=== PATIENT | female | born 2000 | race African-American/Black ===

== ENCOUNTER 2023-08-14 13:21 | Emergency (ER) | payer SELFPAY ==
[2023-08-14 14:17] LABS: Absolute Lymphocytes (CBC) 1.8 K/uL (0.7-4.9); Hematocrit 39.8 % (36.0-45.0); Lymphocytes % 15.7 % (15.3-44.8); MCV 90.3 fL (80-100); MPV 6.6 fL (7.6-11.3); Platelets 416 thou/uL (152-406); RBC Red Blood Cell Count 4.41 M/uL (3.86-4.86)
[2023-08-14 14:26] LABS: Protime INR 1.17
[2023-08-14 14:43] LABS: ALT/SGPT 14 U/L (13-56); AST/SGOT 8 U/L (15-37); Albumin 3.7 g/dL (3.4-5.0); Alkaline Phosphatase 64 U/L (45-117); BUN Blood Urea Nitrogen 8 mg/dL (7-18); Bicarbonate 24 mEq/L (21-32); Bilirubin Direct 0.1 mg/dL (0-0.2); Bilirubin Indirect, Calculated 0.4 mg/dL (0.2-0.8); Bilirubin Total 0.5 mg/dL (0.2-1.0); Glomerular Filtration Rate 125 ml/min (=/>90); Glucose Level 89 mg/dL (74-106); Potassium 3.2 mEq/L (3.5-5.1); Protein, Total 8.4 g/dL (6.4-8.2); Sodium Level 140 mEq/L (136-145)
[2023-08-14 16:48] LABS: Specific Gravity 1.031 (1.005-1.030)
[2023-08-14 16:50] LABS: Specific Gravity > 1.030 (1.005-1.030); Urine Bacteria <20 /HPF (<20); Urine Bilirubin NEGATIVE (Negative); Urine Blood Trace (Negative); Urine Clarity Extremely Turbid (Clear); Urine Color Yellow (Yellow); Urine Glucose NEGATIVE (Negative); Urine Mucus 1+ /HPF (None Seen); Urine Protein 1+ (Negative); Urine Urobilinogen 1+ (Normal)
[2023-08-14 16:57] LABS: Barbiturates NEGATIVE (NEGATIVE); Benzodiazepines NEGATIVE (NEGATIVE); Cocaine NEGATIVE (NEGATIVE); METHAMPHETAM NEGATIVE (NEGATIVE); Methadone NEGATIVE (NEGATIVE); Opiates NEGATIVE (NEGATIVE); Phencyclidine NEGATIVE (NEGATIVE); THC Cannibis NEGATIVE (NEGATIVE)
--- NOTE | 2023-08-14 17:22 | ER ---
Nurse's Notes [facility] [place] Name: Rodrick Taylor Age: 23 yrs Sex: Female : 2000 Arrival Date: 08/14/2023 Time: 13:21 Bed 17 Private MD: Diagnosis: Psychosis;Hypokalemia Presentation: 08/14 13:26 Chief complaint: EMS states: "toned out for hearing voices and having hallucinations. mb9 Pt wants to hurt herself and stated she's "killed people." Pt doesn't know difference between dreams and reality.". Coronavirus screen: At this time, the client does not indicate any symptoms associated with coronavirus-19. Ebola Screen: No symptoms or risks identified at this time. Initial Sepsis Screen: Does the patient meet any 2 criteria? No. Patient's initial sepsis screen is negative. Does the patient have a suspected source of infection? No. Patient's initial sepsis screen is negative. Risk Assessment: Do you want to hurt yourself or someone else? Patient reports desire/thoughts of hurting themselves or someone else. Provider notified. Onset of symptoms was August 14, 2023. 13:26 Acuity: BRADY 2 mb9 13:26 Method Of Arrival: [facility] Triage Assessment: 13:25 General: Appears in no apparent distress. Behavior is flat. Pain: Denies pain. Neuro: mb9 Brooks Agitation-Sedation Scale (RASS): 0 - Alert and Calm Level of Consciousness is awake, confused, Oriented to person. Cardiovascular: Patient's skin is warm and dry. Respiratory: Airway is patent Respiratory effort is even, unlabored, Respiratory pattern is regular, symmetrical. GI: Abdomen is flat, non-distended. Derm: Skin is pink, warm \\T\\ dry. Musculoskeletal: Range of motion: intact in all extremities. 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 - Social history:: Smoking status: Patient denies any tobacco usage or history of. Screenin:12 [facility] ED Fall Risk Assessment (Adult) History of falling in the last 3 months, mb9 including since admission No falls in past 3 months (0 pts) Confusion or Disorientation No (0 pts) Intoxicated or Sedated No (0 pts) Impaired Gait No (0 pts) Mobility Assist Device Used No (0 pt) Altered Elimination No (0 pt) Score/Fall Risk Level 0 - 2 = Low Risk Oriented to surroundings, Maintained a safe environment, Educated pt \\T\\ family on fall prevention, incl call for assistance when getting out of bed. Abuse screen: Denies threats or abuse. Nutritional screening: No deficits noted. Tuberculosis screening: No symptoms or risk factors identified. Assessment: 13:25 Reassessment: SI precautions in place. Sitter at bedside. SEE C-SSRS form for further mb9 information. 14:25 Reassessment: at bedside. SI precautions in place. Pt currently sleeping. mb9 Sitter at bedside. 15:25 Reassessment: at bedside. SI precautions in place. Pt currently sleeping. mb9 Sitter at bedside. 16:25 Reassessment: SI precautions in place. Sitter at bedside. Pt laying in bed with eyes mb9 open. 17:25 Reassessment: at bedside. SI precautions in place. Pt currently sleeping. mb9 Sitter at bedside. Pt laying in bed with eyes open. 17:32 Reassessment: Suleiman, pt , phone number; [phone]. mb9 18:25 Reassessment: SI precautions in place. Pt currently sleeping. Sitter at bedside, pt mb9 currently sleeping. 19:25 Reassessment: at bedside. SI precautions in place. Pt currently sleeping. mb9 Sitter at bedside. 20:25 Reassessment: at bedside. SI precautions in place. Sitter at bedside. mb9 20:46 Reassessment: pt attempting to leave room and wander [address]. Pt redirected into own mb9 room. 21:25 Reassessment: at bedside. SI precautions in place. Sitter at bedside. Pt mb9 currently laying in bed with eyes open. 21:30 General: Appears comfortable, Behavior is calm, cooperative. Pain: Denies pain. Neuro: ha1 Level of Consciousness is awake, alert, Oriented to person, place, time, situation, Reports Suicidal ideations . Cardiovascular: Patient's skin is warm and dry. Respiratory: Airway is patent Respiratory effort is even, unlabored, Respiratory pattern is regular, symmetrical. GI: No signs and/or symptoms were reported involving the gastrointestinal system. Abdomen is flat, non-distended. : No signs and/or symptoms were reported regarding the genitourinary system. Derm: Skin is moist, Skin is normal. Musculoskeletal: Circulation, motion, and sensation intact. 22:30 Reassessment: eyes closed. General: Behavior is calm. Respiratory: Airway is patent ha1 Respiratory effort is even, unlabored, Respiratory pattern is regular, symmetrical. 22:50 Reassessment: [facility] sales support representative in the room. ha1 23:22 Reassessment: patient's elimination needs met. tm6 08/15 00:46 Reassessment: eyes closed. Respiratory: Airway is patent Respiratory effort is even, ha1 unlabored, Respiratory pattern is regular, symmetrical. 01:30 Reassessment: No changes from previously documented assessment. ha1 01:30 Respiratory: Airway is patent Respiratory effort is even, unlabored, Respiratory ha1 pattern is regular, symmetrical. 02:35 Reassessment: Patient appears in no apparent distress at this time. patient provided a ha1 snack. 03:49 Reassessment: Patient appears in no apparent distress at this time. patient changed ha1 into new gown and deodorant applied. 04:25 Reassessment: patient has eyes closed. Respiratory: Airway is patent Respiratory effort tm6 is even, unlabored, Respiratory pattern is regular, symmetrical. 05:00 Reassessment: eyes closed. Respiratory: Airway is patent Respiratory effort is even, ha1 unlabored, Respiratory pattern is regular, symmetrical. 05:18 Reassessment: patient has eyes closed. tm6 06:00 Reassessment: eyes closed. Respiratory: Airway is patent Respiratory effort is even, ha1 unlabored, Respiratory pattern is regular, symmetrical. 06:29 Reassessment: Patient appears in no apparent distress at this time. patient has eyes tm6 closed. 07:00 Reassessment: Patient appears in no apparent distress at this time. No changes from kc6 previously documented assessment. Patient and/or family updated on plan of care and expected duration. Pain level reassessed. Patient is alert, oriented x 3, equal unlabored respirations, skin warm/dry/pink. 08:00 Reassessment: Patient appears in no apparent distress at this time. No changes from kc6 previously documented assessment. Patient and/or family updated on plan of care and expected duration. Pain level reassessed. Patient is alert, oriented x 3, equal unlabored respirations, skin warm/dry/pink. 09:00 Reassessment: Patient appears in no apparent distress at this time. No changes from kc6 previously documented assessment. Patient and/or family updated on plan of care and expected duration. Pain level reassessed. Patient is alert, oriented x 3, equal unlabored respirations, skin warm/dry/pink. 10:00 Reassessment: Patient appears in no apparent distress at this time. No changes from kc6 previously documented assessment. Patient and/or family updated on plan of care and expected duration. Pain level reassessed. Patient is alert, oriented x 3, equal unlabored respirations, skin warm/dry/pink. 11:00 Reassessment: Patient appears in no apparent distress at this time. No changes from kc6 previously documented assessment. Patient and/or family updated on plan of care and expected duration. Pain level reassessed. Patient is alert, oriented x 3, equal unlabored respirations, skin warm/dry/pink. 12:00 Reassessment: Patient appears in no apparent distress at this time. No changes from kc6 previously documented assessment. Patient and/or family updated on plan of care and expected duration. Pain level reassessed. Patient is alert, oriented x 3, equal unlabored respirations, skin warm/dry/pink. 13:00 Reassessment: Patient appears in no apparent distress at this time. No changes from kc6 previously documented assessment. Patient and/or family updated on plan of care and expected duration. Pain level reassessed. Patient is alert, oriented x 3, equal unlabored respirations, skin warm/dry/pink. 14:00 Reassessment: Patient appears in no apparent distress at this time. No changes from kc6 previously documented assessment. Patient and/or family updated on plan of care and expected duration. Pain level reassessed. Patient is alert, oriented x 3, equal unlabored respirations, skin warm/dry/pink. 15:00 Reassessment: Patient appears in no apparent distress at this time. No changes from kc6 previously documented assessment. Patient and/or family updated on plan of care and expected duration. Pain level reassessed. Patient is alert, oriented x 3, equal unlabored respirations, skin warm/dry/pink. 16:00 Reassessment: Patient appears in no apparent distress at this time. No changes from kc6 previously documented assessment. Patient and/or family updated on plan of care and expected duration. Pain level reassessed. Patient is alert, oriented x 3, equal unlabored respirations, skin warm/dry/pink. 19:00 Reassessment: Report received from AM nurse. Pt noted in bed with S.O. at bedside. Pt nw1 denies needs/wants at this time. Pt's room assessed for anything of danger. Nothing noted. Pt in direct view of nurse's station. A\\T\\Ox3. 0 s/s of acute distress noted at this time. Will continue to monitor At this time, AM sitter monitoring 1:1 with patient. 21:00 Reassessment: Patient up to restroom. No 1:1 sitter at this time. No 1:1 permanent nw1 sitter at bedside since 1930, however patient in constant view of nurse's station. 0 s/s of acute distress noted at this time. S.O at bedside. Pt stated anxiety and notified MD of this. Patient then stated she did not want any medication at this time Notified patient that it is available when needed. Flat affect noted. Will continue to closely monitor. 23:00 Reassessment: Patient noted sitting upright in bed. Reassessed patient. Patient states nw1 anxiety due to movement in emergency department. Reassured patient that emergency department is busy but she is still safe and cared for. Pt appeared reassured and verbalized understanding of conversation. Patient also reminded that medication available. Patient refused medication at this time. S.O. remains at bedside. Patient noted A\\T\\Ox4 with 0 s/s of acute distress at this time. Pt denies need/want for anything at this time. Will continue to closely monitor. 08/16 01:00 Reassessment: Pt noted laying in bed with both eyes closed. 0 s/s of acute distress nw1 noted at this time. S.O. at bedside. Will continue to monitor. Pt remains near nursing station. 03:00 Reassessment: Pt talking to this nurse with a lot of confusion in conversation. Pt nw1 states she is traveling in [place] and is unable to tell what is real vs what is not real. Pt denies wanting medication at this time. Pt able to be reassured and reoriented. Pt denies pain at this time. S.O. at bedside sleeping. A\\T\\Ox2 at this time. Pt remains near nursing station. Will continue to monitor. 05:00 Reassessment: Patient taken upstairs via wheelchair to take a shower with this nurse. nw1 Pt tolerated shower. Oral care performed. Patient noted with flat affect. Will continue to monitor closely. 07:02 Reassessment: Pt noted with incoherent thoughts and speaking of a lot. nw1 Administered PO medication and patient tolerated. Pt noted watching television at this time. Pt continuing to come to nurse's station. Patient currently in bed watching television. Oncoming nurse made aware during COS. 07:03 Reassessment: Patient and/or family updated on plan of care and expected duration. Pain ll1 level reassessed. Report received from manager shift RN. 09:50 Reassessment: Report given Isacc at [facility]. ll1 11:39 Reassessment: No changes from previously documented assessment. Patient and/or family ll1 updated on plan of care and expected duration. Pain level reassessed. To [facility] via EMS. Psych: 08/14 21:30 [place] Suicide Severity Screening: In the past month, have you wished you were ha1 or wished you could go to sleep and not wake up? Patient responds "yes." "In the past month, have you actually had any thoughts of killing yourself?" Patient responds "yes." "In your lifetime, have you ever done anything, started to do anything, or prepared to do anything to end your life?" Patient responds "yes." Patient reports suicidal intent within 3 past months. Subjective: Patient's mood is sad. Objective: Patient is cooperative, Speech is normal, Affect is flat. Interventions: Removed personal items and placed in bag. Patient placed in hospital gown. Patient reassessed during use of restraints. Patient is physically safe. Patient's respirations are even and unlabored. Patient assessed for signs of distress. Patient remains reasonably comfortable at this time. Safety Checks: Personal items have been removed. Door is open. Visitors are present. Pt denies substance abuse. Commitment: Patient will be an involuntary commitment. Vital Signs: 13:26 BP 120 / 80; Pulse 95; Resp 18; Temp 98; Pulse Ox 100% ; Weight 68.04 kg; Height 5 ft. mb9 3 in. ; Pain 0/10; 19:00 BP 118 / 78; Pulse 85; Resp 16; Pulse Ox 99% ; mb9 08/15 01:41 BP 165 / 82; Pulse 93; Resp 17 S; Temp 98.6(O); Pulse Ox 97% on R/A; ha1 16:34 BP 145 / 80; Pulse 98; Resp 20; Temp 98.2; Pulse Ox 100% on R/A; em1 21:03 BP 121 / 80; Pulse 106; Resp 16; Temp 96.9(O); Pulse Ox 99% on R/A; nw1 08/16 02:02 BP 119 / 81; Pulse 90; Resp 16; Pulse Ox 99% on R/A; nw1 10:12 BP 128 / 82; Pulse 100; Resp 20; Temp 98.4; Pulse Ox 100% on R/A; em1 08/14 13:26 Body Mass Index 26.57 (68.04 kg, 160.02 cm) mb9 08/14 13:26 Pain Scale: Adult mb9 ED Course: 08/14 13:25 Patient arrived in ED. mb9 13:25 Arm band placed on. mb9 13:25 Patient has correct armband on for positive identification. Side rails up X2. mb9 13:30 Triage completed. mb9 13:31 Lani Crenshaw, DORITA is Primary Nurse. mb9 13:35 Suleiman Navarro DO is Attending Physician. ms3 14:10 EKG done, by ED staff, reviewed by Suleiman Navarro DO. mb9 14:26 Salicylate Sent. ds4 14:26 Ptt, Activated Sent. ds4 16:22 Urinalysis w/ reflexes Sent. mb9 16:22 Test, Urine Sent. mb9 17:02 faxed patient record to the following facilities in attempt to find [facility]/ [facility]/ and [facility]. 19:00 Attending Physician role handed off by Suleiman Navarro DO rt 19:00 Ty Garrison MD is Attending Physician. rt 20:29 No provider procedures requiring assistance completed. mb9 21:01 called [facility] and talked to Murtaza. sp 21:22 Noris with [facility] called and will be here in an hour to see pt. sp 21:42 Report given to Seven. mb9 23:11 faxed [facility] document from [place]. sp 08/15 03:49 Assisted to bathroom. gown changed, deodorant provided. ha1 04:18 reached out to [facility] regarding placement status, they are at full capacity but jr will be discharging patients this morning and will then have a bed available for pt. 07:00 Report received from DORITA Dickinson. kc6 07:06 Report given to Marie KEVIN. tm6 07:07 Attending Physician role handed off by Ty Garrison MD ms3 07:07 Suleiman Navarro DO is Attending Physician. ms3 09:53 spoke to Reji with [facility], "waiting on discharges, will get one of the [facility] beds as soon as it becomes available". 20:45 Attending Physician role handed off by Suleiman Navarro DO sp4 20:45 Joshua Albright MD is Attending Physician. sp4 23:38 No apparent distress. Appears restless. transfer approval from receiving facility. nw1 Safety Checks: Personal items have been removed. The door is open or patient has been placed in a hallway bed/chair. A family member and/or friend is present and encouraged to stay. significant other Sitter not present at this time due to or because staffing. 23:38 Provided Education on: POC. Noise minimized. Lights dimmed. Warm blanket given. Patient nw1 is placed in psych hold. 23:38 Patient did not have IV access during this emergency room visit. nw1 08/16 07:16 Attending Physician role handed off by Joshua Albright MD ms3 07:16 Suleiman Navarro DO is Attending Physician. ms3 09:32 spoke with Reed at [facility], no beds yet, he will try to open a overflow bed. bd 10:31 pt accepted in transfer to [facility] by dr Jason, admin approval given by Lisbet Rankin. Administered Medications: 08/14 17:31 Drug: Geodon IM 10 mg IM once Route: IM; Site: left deltoid; mb9 20:42 Follow up: Response: No adverse reaction mb9 17:32 Drug: Potassium Chloride PO 40 mEq PO once Route: PO; mb9 20:42 Follow up: Response: No adverse reaction mb9 08/15 13:24 Drug: Geodon IM 10 mg IM once Route: IM; Site: left deltoid; kc6 14:31 Follow up: Response: No adverse reaction; Anxiety decreased; RASS: Alert and Calm (0) kc6 15:18 Drug: LORazepam IM 1 mg IM once Route: IM; Site: right deltoid; kc6 16:38 Follow up: Response: No adverse reaction; Anxiety decreased; RASS: Alert and Calm (0) 6 08/16 06:05 Drug: LORazepam PO 2 mg PO once Route: PO; nw1 11:52 Follow up: Response: No adverse reaction; RASS: Alert and Calm (0) 1 06:05 Drug: Cephalexin PO 500 mg PO once Route: PO; nw1 11:52 Follow up: Response: No adverse reaction 1 Medication: 08/14 14:12 VIS not applicable for this client. mb9 Outcome: 17:22 ER care complete, transfer ordered by . ms3 08/16 11:40 Transferred by ground EMS to other acute care facility: [facility] . Transfer form ll1 completed. Condition: stable Instructed on the need for transfer, 11:53 Patient left the ED. 1 Signatures: Edna Stringer Shawna sp Martinez, Eric emLuke Yang ds4 Luana Segundo Lynsay RN RN ll1 Suleiman Navarro DO DO ms3 Lynn Cooper RN RN haMarie Odonnell RN RN kc6 Lani Crenshaw RN RN mb9 Ty Garrison MD MD rt Joshua Albright MD MD sp4 Neelima Villegas [facility] Chacorta Valdez RN RN tm6 Rebekah Dove RN RN nw1 Corrections: (The following items were deleted from the chart) 08/14 14:36 13:25 Reassessment: SI precautions in place. Sitter at bedside. mb9 mb9 15:41 14:25 Reassessment: at bedside. SI precautions in place. Pt currently sleeping. mb9 Sitter at bedside mb9 17:32 15:25 Reassessment: at bedside. SI precautions in place. Pt currently sleeping. mb9 Sitter at bedside mb9 20:38 20:25 Reassessment: at bedside. SI precautions in place. Pt currently sleeping. mb9 Sitter at bedside mb9 08/15 06:33 01:30 Reassessment: No changes from previously documented assessment. ha1 ha1 06:33 03:17 Reassessment: patient sleeping ha1 ha1 07:08 04:25 Reassessment: patient sleeping tm6 tm6 07:08 05:18 Reassessment: patient sleeping tm6 tm6 07:09 06:29 Reassessment: Patient appears in no apparent distress at this time. patient tm6 sleeping tm6 17:15 08/14 13:25 Allergies: No Known Allergies; mb9 kc6 08/16 02:02 02:00 Reassessment: Pt noted laying in bed with both eyes closed. 0 s/s of acute nw1 distress noted at this time. S.O. at bedside. Will continue to monitor. Pt remains near nursing station. nw1
--- NOTE | 2023-08-14 17:22 | EDPHYS ---
Physician Documentation [facility] Name: Rodrick Taylor Age: 23 yrs Sex: Female : 2000 Arrival Date: 08/14/2023 Time: 13:21 Bed 17 Private MD: ED Physician Suleiman Navraro HPI: 08/14 14:09 This 23 yrs old Female presents to ER via EMS with complaints of psychosis. ms3 14:09 23-year-old female with past medical history of depression, ADD presents to the [facility] emergency department via [facility] after she was found wandering down the street. Patient stated to EMS that she has been killing people and wants to herself and others. Patient stated to me she was wanting to hurt herself and other people. Patient is withdrawn during HPI.. 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 - Social history:: Smoking status: Patient denies any tobacco usage or history of. ROS: 14:09 Constitutional: Negative for fever, and chills. Cardiovascular: Negative for chest ms3 pain, and palpitations. Respiratory: Negative for shortness of breath, cough, wheezing, and pleuritic chest pain, Abdomen/GI: Negative for abdominal pain, nausea, vomiting, diarrhea, and constipation, MS/Extremity: Negative for injury and deformity, Skin: Negative for injury, rash, and discoloration, Neuro: Negative for headache, weakness, numbness, tingling. Exam: 14:09 Constitutional: This is a well developed, well nourished patient who is awake, alert, ms3 and in no acute distress. Head/Face: Normocephalic, atraumatic. Neck: Trachea midline, no cervical lymphadenopathy. Supple, full range of motion without nuchal rigidity, or vertebral point tenderness. No Meningismus. Cardiovascular: Regular rate and rhythm with a normal S1 and S2. No gallops, murmurs, or rubs. Normal PMI, no JVD. No pulse deficits. Respiratory: Lungs have equal breath sounds bilaterally, clear to auscultation and percussion. No rales, rhonchi or wheezes noted. No increased work of breathing, no retractions or nasal flaring. Abdomen/GI: Soft, non-tender, with normal bowel sounds. No distension or tympany. No guarding or rebound. No evidence of tenderness throughout. Skin: Warm, dry with normal turgor. Normal color with no rashes, no lesions, and no evidence of cellulitis. MS/ Extremity: Pulses equal, no cyanosis. Neurovascular intact. Full, normal range of motion. 14:09 Psych: Behavior/mood is withdrawn. Affect is flat, Patient having thoughts of suicide. Patient having thoughts of homicide. Judgement / Insight is impaired. Delusions/hallucinations are present and described as Patient appears to be pointing to objects not present in the room. 14:30 ECG was reviewed by the Attending Physician. ms3 Vital Signs: 13:26 BP 120 / 80; Pulse 95; Resp 18; Temp 98; Pulse Ox 100% ; Weight 68.04 kg; Height 5 ft. mb9 3 in. ; Pain 0/10; 19:00 BP 118 / 78; Pulse 85; Resp 16; Pulse Ox 99% ; mb9 12 01:41 BP 165 / 82; Pulse 93; Resp 17 S; Temp 98.6(O); Pulse Ox 97% on R/A; ha1 16:34 BP 145 / 80; Pulse 98; Resp 20; Temp 98.2; Pulse Ox 100% on R/A; em1 21:03 BP 121 / 80; Pulse 106; Resp 16; Temp 96.9(O); Pulse Ox 99% on R/A; nw1 12 02:02 BP 119 / 81; Pulse 90; Resp 16; Pulse Ox 99% on R/A; nw1 10:12 BP 128 / 82; Pulse 100; Resp 20; Temp 98.4; Pulse Ox 100% on R/A; em1 08/14 13:26 Body Mass Index 26.57 (68.04 kg, 160.02 cm) mb9 08/14 13:26 Pain Scale: Adult mb9 MDM: 08/14 14:08 Patient medically screened. ms3 14:09 Differential diagnosis: drug withdrawal. acute psychotic break, depression, psychosis ms3 secondary to non-compliance. 08/15 00:55 Data reviewed: vital signs, nurses notes, lab test result(s). Management of patient was rt discussed with the following: Behavioral Health Provider: Recommends inpatient psychiatric hospitalization. I considered the following discharge prescriptions or medication management in the emergency department Medications were administered in the Emergency Department. See MAR. 07:08 Transition of care: Care assumed from Ty Garrison MD. ms3 10:06 ED course: Patient re-evaluated this AM. Patient denies hallucinations at this time. ms3 Patient initially states she is not suicidal and then stated she lied and is suicidal because of the pain she has been in lately. Patient did not elaborate on her pain. Discussed with patient we were awaiting transfer to psychiatric facility. Patients at bedside and updated as well.. 15:09 ED course: Patient with visual hallucinations after 10 mg Geodon. Will give patient 1 ms3 mg Ativan IM.. 08/16 07:19 Transition of care: Care assumed from Joshua Albright MD. ms3 07:24 ED course: Re-evaluation: Patient is alert, in NAD, non-toxic appearing. Patient is ms3 without hallucinations at this time. Discussed with patient transfer remains pending. . 08/14 13:27 Order name: Acetaminophen; Complete Time: 17:18 sb4 08/14 13:27 Order name: Basic Metabolic Panel; Complete Time: 17:18 sb4 08/14 13:27 Order name: CBC with Diff; Complete Time: 14:34 sb4 08/14 13:27 Order name: ETOH Level; Complete Time: 17:18 sb4 08/14 13:27 Order name: Hepatic Function; Complete Time: 17:18 sb4 08/14 13:27 Order name: PT-INR; Complete Time: 14:34 sb4 08/14 13:27 Order name: Test, Urine; Complete Time: 17:18 sb4 08/14 13:27 Order name: Ptt, Activated; Complete Time: 14:34 sb4 08/14 13:27 Order name: Salicylate; Complete Time: 17:18 sb4 08/14 13:27 Order name: Urinalysis w/ reflexes; Complete Time: 17:18 sb4 08/14 13:27 Order name: Urine Drug Screen; Complete Time: 17:18 sb4 08/16 07:11 Order name: EKG Electrocardiogram EDDC 08/14 13:27 Order name: EKG - Nurse/Tech; Complete Time: 14:16 sb4 08/14 13:27 Order name: IV Saline Lock; Complete Time: 14:16 sb4 08/14 13:27 Order name: Labs collected and sent; Complete Time: 14:16 sb4 08/14 13:27 Order name: Suicide Precautions; Complete Time: 14:16 sb4 08/14 13:27 Order name: Suicide Screening ([place]); Complete Time: 14:16 sb4 EC/10 14:30 Rate is 76 beats/min. Rhythm is regular. QRS [place] is Normal. MO interval is normal. QRS ms3 interval is normal. Clinical impression: Normal ECG. Interpreted by me. Reviewed by me. Administered Medications: 17:31 Drug: Geodon IM 10 mg IM once Route: IM; Site: left deltoid; mb9 20:42 Follow up: Response: No adverse reaction 9 17:32 Drug: Potassium Chloride PO 40 mEq PO once Route: PO; mb9 20:42 Follow up: Response: No adverse reaction 9 08/15 13:24 Drug: Geodon IM 10 mg IM once Route: IM; Site: left deltoid; kc6 14:31 Follow up: Response: No adverse reaction; Anxiety decreased; RASS: Alert and Calm (0) 6 15:18 Drug: LORazepam IM 1 mg IM once Route: IM; Site: right deltoid; kc6 16:38 Follow up: Response: No adverse reaction; Anxiety decreased; RASS: Alert and Calm (0) [facility] 08/16 06:05 Drug: LORazepam PO 2 mg PO once Route: PO; nw1 11:52 Follow up: Response: No adverse reaction; RASS: Alert and Calm (0) ll1 06:05 Drug: Cephalexin PO 500 mg PO once Route: PO; nw1 11:52 Follow up: Response: No adverse reaction ll1 Disposition Summary: 08/14/23 17:22 Transfer Ordered Notes: Transfer Location: [facility] Facility ms3 Reason: Higher level of care ms3 Condition: Stable ms3 Problem: new ms3 Symptoms: are unchanged ms3 Accepting Physician: (08/16/23 11:53) ll1 Diagnosis - Psychosis ms3 - Hypokalemia ms3 Forms: - Medication Reconciliation Form ms3 - SBAR form ms3 Signatures: Dispatcher [employer] EDMurphy Barron RN RN ll1 Suleiman Navarro, DO ms3 Marie Mcdonnell RN RN kc6 Yasmeen Duque, PASalvador PASalvador sb4 Flower, Lani Lambert RN RN mb9 Ty Garrison MD MD rt Joshua Albright MD MD sp4 Rebekah Dove RN RN nw1 Corrections: (The following items were deleted from the chart) 08/15 17:15 08/14 13:25 Allergies: No Known Allergies; mb9 kc6 08/16 11:53 08/14 17:22 Dr naidu3 ll1
[2023-08-14] MEDS ORDERED: POTASSIUM CL SA 10 MEQ TAB PO ONE (17:39)
[2023-08-14] MEDS ORDERED: ZIPRASIDONE MESYLA 20 MG/VIAL IM ONE (17:39)
[2023-08-14] MEDS ORDERED: WATER FOR INJ,STERILE 10 ML ONE (17:39)
[2023-08-15] MEDS ORDERED: ZIPRASIDONE MESYLA 20 MG/VIAL IM ONE (13:31)
[2023-08-15] MEDS ORDERED: WATER FOR INJ,STERILE 10 ML ONE (13:32)
[2023-08-15] MEDS ORDERED: LORazepam 2 MG/ML VIAL ONE (15:26)
[2023-08-15] MEDS ORDERED: LORAZEPAM 1 MG TABLET ONE (21:06)
[2023-08-16] MEDS ORDERED: LORAZEPAM 1 MG TABLET ONE (06:16)
[2023-08-16] MEDS ORDERED: CEPHALEXIN 250 MG CAP ONE (06:16)
[2023-08-16 12:22] VITALS: BP 128/82; TEMP 98.4; O2SAT 100
--- NOTE | 2023-08-16 13:49 | EKG ---
Test Date: 2023-08-14 Test Time: 14:17:24 Piano Case And Bench Assembler: ADAIR MEASUREMENT RESULTS: Intervals: Rate: 76 NM: 116 QRSD: 86 QT: 382 QTc: 429 [place]: P: 82 NM: 116 QRS: 80 T: 64 INTERPRETIVE STATEMENTS: Normal sinus rhythm Normal ECG No previous ECG available for comparison Electronically Signed On 08-16-23 13:41:34 CONFIGURATION MANAGEMENT ADMINISTRATOR by Yobany Andrews
== END 2023-08-16 11:53 ==
LOC: ER 13:21
DX: F29 Unspecified psychosis not due to a substance or known physiological condition (principal); E87.6 Hypokalemia; Z91.014 Allergy to mammalian meats
CPT/HCPCS: 36415; 80048; 80076; 80143; 80179; 80307; 81001; 81025; 82077; 85025; 85610; 85730; 93005; 96372; 99285; J3486